=== PATIENT | female | born 1980 | race Caucasian/White ===

== ENCOUNTER 2018-08-06 15:39 | Emergency (ER) | payer OTHER ==
[2018-08-06 16:48] VITALS: BP 115/76
--- NOTE | 2018-08-06 17:11 | UC ---
Throat Pain/Nasal Emm[place] HPI - HPI Summary HPI Summary: 37-year-old woman coming in with a chief complaint of runny nose sore throat cough chest congestion and wheezing. This all started yesterday. She's had some chills. She has some pain in the chest with coughing. She has no history of asthma. She does have body aches but primarily in the chest with coughing. She has taken some [id number] medications that to help some. - History of Current Complaint Chief Complaint: UCRespiratory Stated Complaint: COUGH Time Seen by Provider: 08/06/18 17:00 Hx Last Menstrual Period: [id number] Pain Intensity: 5 - Allergies/Home Medications Allergies/Adverse Reactions: Allergies Allergy/AdvReac Type Severity Reaction Status Date / Time Penicillins Allergy Hives Verified 08/06/18 16:49 welbutrin Allergy Severe Hives Uncoded 08/06/18 16:49 adhesives Allergy Mild Rash Uncoded 08/06/18 16:49 Home Medications: Home Medications Ibuprofen TAB* [Motrin TAB* 800 MG] 800 mg PO Q6H PRN 08/06/18 [History Confirmed 08/06/18] PMH/Surg Hx/FS Hx/Imm Hx Previously Healthy: Yes - Surgical History Surgical History: Yes Surgery Procedure, Year, and Place: breast augmentation - Family History Known Family History: Positive: Hypertension, Diabetes - Social History Alcohol Use: Weekly Substance Use Type: Marijuana Substance Use Comment - Amount & Last Used: veryy occassional Smoking Status (MU): Never Smoked Tobacco - Immunization History Most Recent Tetanus Shot: unknown, will offer post Review of Systems Constitutional: Chills Skin: Negative Eyes: Negative ENT: Sore Throat, Nasal Discharge Respiratory: Cough, Other - wheezing Cardiovascular: Other - see hpi Gastrointestinal: Negative Motor: Negative Neurovascular: Negative Musculoskeletal: Negative Neurological: Negative Psychological: Negative Is Patient Immunocompromised?: No All Other Systems Reviewed And Are Negative: Yes Physical Exam Triage Information Reviewed: Yes Appearance: No Pain Distress, Well-Nourished, Ill-Appearing - mild Vital Signs: Initial Vital Signs Temp 98.0 F 08/06/18 16:42 Pulse 78 08/06/18 16:42 Resp 16 08/06/18 16:42 BP 115/76 08/06/18 16:42 Pulse Ox 99 08/06/18 16:42 Eye Exam: Normal Eyes: Positive: Conjunctiva Clear ENT: Positive: Pharyngeal erythema, Nasal drainage, TMs normal Neck exam: Normal Neck: Positive: Supple Respiratory: Positive: No respiratory distress, Wheezing Cardiovascular: Positive: RRR Musculoskeletal Exam: Normal Musculoskeletal: Positive: Strength Intact, ROM Intact Neurological Exam: Normal Neurological: Positive: Alert, Muscle Tone Normal Psychological Exam: Normal Psychological: Positive: Age Appropriate Behavior Skin Exam: Normal Throat Pain/Nasal Course/Dx - Course Course Of Treatment: DISCUSSED VIRAL VERSES BACTERIAL INFECTION AND THE ROLE OF ANTIBIOTICS. THE PATIENT WISHES TO BE ON ANTIBIOTICS AT THIS TIME. - Differential Dx/Diagnosis Provider Diagnoses: BRONCHITIS WITH BRONCHOSPASM Discharge - Sign-Out/Discharge Documenting (check all that apply): Patient Departure All imaging exams completed and their final reports reviewed: No Studies - Discharge Plan Condition: Stable Disposition: HOME Prescriptions: Albuterol HFA INHALER* [Ventolin HFA Inhaler*] 2 puff INH Q4H PRN #1 mdi PRN Reason: Wheezing Azithromyxin HEIDY (NF) [Z-Heidy (Zithromax) 250 mg tabs #6] 2 tab PO .TODAY, THEN 1 DAILY #6 tab Patient Education Materials: Acute Bronchitis (ED), Bronchospasm (ED) Forms: *Work Release Referrals: Samantha Matute MD [Primary Care Provider] - Additional Instructions: FOLLOW UP WITH YOUR DOCTOR. GET RECHECKED FOR ANY WORSENING OF YOUR CONDITION OR QUESTIONS OR CONCERNS. - Billing Disposition and Condition Condition: STABLE Disposition: Home
== END 2018-08-06 17:55 | disposition home or self-care (01) ==
LOC: UCEAST 15:39
DX: J40 Bronchitis, not specified as acute or chronic (principal); J98.01 Acute bronchospasm; Z88.8 Allergy status to other drugs, medicaments and biological substances; Z88.0 Allergy status to penicillin; Z91.048 Other nonmedicinal substance allergy status
CPT/HCPCS: 99212; G0463

== ENCOUNTER 2018-10-19 11:07 | Emergency (ER) | payer OTHER ==
[2018-10-19 11:31] VITALS: BP 128/78
--- NOTE | 2018-10-19 11:49 | UC ---
Complaint Female HPI - HPI Summary HPI Summary: 6 days of bladder pain with dysuria, urgency and frequency, which has not responded to increased water intake and cranberry juice. - History Of Current Complaint Chief Complaint: UCGU Stated Complaint: URINARY ISSUE Time Seen by Provider: 10/19/18 11:39 Hx Obtained From: Patient Hx Last Menstrual Period: 10/19/18 Onset/Duration: Gradual Onset, Lasting Days - 5 Timing: Intermittent, Lasting Hours Severity Initially: Mild Severity Currently: Moderate Pain Intensity: 3 Character: Burning Aggravating Factor(s): Urination Alleviating Factor(s): Nothing Associated Signs And Symptoms: Positive: Negative - Allergies/Home Medications Allergies/Adverse Reactions: Allergies Allergy/AdvReac Type Severity Reaction Status Date / Time Penicillins Allergy Hives Verified 10/19/18 11:31 welbutrin Allergy Severe Hives Uncoded 10/19/18 11:31 adhesives Allergy Mild Rash Uncoded 10/19/18 11:31 PMH/Surg Hx/FS Hx/Imm Hx Previously Healthy: Yes - Surgical History Surgical History: Yes Surgery Procedure, Year, and Place: breast augmentation. eye cyst removal - Family History Known Family History: Positive: Hypertension, Diabetes - Social History Occupation: Employed Full-time Lives: With Family Alcohol Use: Occasionally Substance Use Type: None Substance Use Comment - Amount & Last Used: hx mj use Smoking Status (MU): Never Smoked Tobacco - Immunization History Most Recent Tetanus Shot: unknown, Review of Systems All Other Systems Reviewed And Are Negative: Yes Constitutional: Positive: Negative Skin: Positive: Negative Eyes: Positive: Negative ENT: Positive: Negative Respiratory: Positive: Negative Cardiovascular: Positive: Negative Gastrointestinal: Positive: Negative Genitourinary: Positive: Dysuria, Frequency, Urgency. Negative: Vaginal/Penile Burning, Vaginal/Penile Itching, Vaginal/Penile Discharge Motor: Positive: Negative Neurovascular: Positive: Negative Musculoskeletal: Positive: Negative Neurological: Positive: Negative Psychological: Positive: Negative Is Patient Immunocompromised?: No Physical Exam Triage Information Reviewed: Yes Appearance: Well-Appearing, No Pain Distress, Obese Vital Signs: Initial Vital Signs Temp 97.2 F 10/19/18 11:26 Pulse 96 10/19/18 11:26 Resp 18 10/19/18 11:26 BP 128/78 10/19/18 11:26 Pulse Ox 98 10/19/18 11:26 ENT: Positive: Normal ENT inspection Neck: Positive: Supple, Nontender, No Lymphadenopathy Respiratory: Positive: Lungs clear, Normal breath sounds Cardiovascular: Positive: RRR, No Murmur Abdomen Description: Positive: Nontender, Soft. Negative: CVA Tenderness (R), CVA Tenderness (L) Musculoskeletal Exam: Normal Neurological Exam: Normal Psychological Exam: Normal Skin Exam: Normal Diagnostics - Laboratory Diagnostic Studies Completed/Ordered: UA shows many leuks and nitrate positive. Complaint Female Dx - Course Course Of Treatment: bactrim for UTI, maintain high intake of fluid - Differential Dx/Diagnosis Differential Diagnosis/HQI/PQRI: Ureteral Stone, Urinary Tract Infection Provider Diagnosis: UTI (urinary tract infection) Discharge - Sign-Out/Discharge Documenting (check all that apply): Patient Departure All imaging exams completed and their final reports reviewed: No Studies - Discharge Plan Condition: Stable Disposition: HOME Prescriptions: Sulfamethox/Trimethoprim DS* [Bactrim DS 800/160 TAB*] 1 tab PO BID #6 tab Patient Education Materials: Urinary Tract Infection in Women (ED) Referrals: Samantha Matute MD [Primary Care Provider] - Additional Instructions: Continue high intake of water. Take the full course of bactrim. Urine culture will be done, and if there is resistance to this antibiotic you will be notified. - Billing Disposition and Condition Condition: STABLE Disposition: Home
--- NOTE | 2018-10-20 16:01 | UC ---
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 Take the full course of bactrim. Urine culture will be done, and if there is resistance to this antibiotic you will be notified. - Billing Disposition and Condition Condition: STABLE Disposition: Home
== END 2018-10-19 12:07 | disposition home or self-care (01) ==
LOC: UCEAST 11:07
DX: N39.0 Urinary tract infection, site not specified (principal); Z88.0 Allergy status to penicillin; Z88.8 Allergy status to other drugs, medicaments and biological substances; Z91.048 Other nonmedicinal substance allergy status
CPT/HCPCS: 81003; 87086; 87088; 99212; G0463

== ENCOUNTER 2019-01-16 17:04 | Emergency (ER) | payer OTHER ==
[2019-01-16] MEDS ORDERED: Ibuprofen TAB* 400 MG PO ONE (18:16)
--- NOTE | 2019-01-16 18:21 | UC ---
HPI Febrile Illness - HPI Summary HPI Summary: 38-year-old female who is otherwise healthy presents with rapid onset of cough, congestion, runny nose and sore throat that began yesterday afternoon. She also had fever up to 101. She denies any shortness of breath nausea vomiting or diarrhea. She has no urinary symptoms. She reports her daughter recently had strep. No known influenza exposures. She is nonsmoker. - History of Current Complaint Time Seen by Provider: 01/16/19 18:10 Hx Obtained From: Patient Hx Last Menstrual Period: 10/19/18 - Allergy/Home Medications Allergies/Adverse Reactions: Allergies Allergy/AdvReac Type Severity Reaction Status Date / Time Penicillins Allergy Hives Verified 01/16/19 18:21 welbutrin Allergy Severe Hives Uncoded 01/16/19 18:21 adhesives Allergy Mild Rash Uncoded 01/16/19 18:21 Home Medications: Home Medications ALPRAZolam TAB* [Xanax TAB*] 0.25 mg PO Q6H PRN 01/16/19 [History Confirmed 01/31] Ibuprofen [Motrin Ib] 800 mg PO Q8HR PRN 01/16/19 [History Confirmed 01/16/19] PMH/Surg Hx/FS Hx/Imm Hx Previously Healthy: Yes - Surgical History Surgical History: Yes Surgery Procedure, Year, and Place: breast augmentation. eye cyst removal - Family History Known Family History: Positive: Hypertension, Diabetes, Other - The daughter recently diagnosed with strep - Social History Occupation: Employed Full-time Alcohol Use: Occasionally Substance Use Type: None Substance Use Comment - Amount & Last Used: hx mj use Smoking Status (MU): Never Smoked Tobacco - Immunization History Most Recent Tetanus Shot: unknown, Review of Systems All Other Systems Reviewed And Are Negative: Yes Constitutional: Positive: Fever, Chills, Fatigue Eyes: Positive: Negative ENT: Positive: Sore Throat, Nasal Discharge, Sinus Congestion Respiratory: Positive: Cough. Negative: Shortness Of Breath Cardiovascular: Positive: Negative Gastrointestinal: Negative: Abdominal Pain, Vomiting, Diarrhea Physical Exam Triage Information Reviewed: Yes Appearance: Well-Appearing, No Pain Distress Vital Signs Reviewed: Yes Eyes: Positive: Conjunctiva Clear ENT: Positive: Pharyngeal erythema, Nasal congestion, Nasal drainage, TMs normal , Tonsillar exudate. 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 Zithromax. Neg flu. Tx abx. Lab Results 01/16/19 01/16/19 Range/Units 18:18 18:26 Influenza A (Rapid) Negative (Negative) Influenza B (Rapid) Negative (Negative) Group A Strep Rapid Positive A (Negative) - Febrile Illness Differential Diagnoses: Other: - flu, strep, URI - Diagnoses Provider Diagnosis: Streptococcal tonsillitis Discharge - Sign-Out/Discharge Documenting (check all that apply): Patient Departure All imaging exams completed and their final reports reviewed: No Studies - Discharge Plan Condition: Improved Disposition: HOME Prescriptions: Azithromycin TAB* [Zithromax TAB (Z-HEIDY) 250 mg #6 tabs] 2 tab PO .TODAY, THEN 1 DAILY #1 heidy Dexamethasone TAB* [Decadron TAB*] 8 mg PO DAILY #8 tab Patient Education Materials: Strep Throat (ED) Referrals: Samantha Matute MD [Primary Care Provider] - Additional Instructions: Drink plenty of fluids. Tylenol, ibuprofen as needed for discomfort. Some steroids were given for tonsil discomfort. Follow up with her primary care doctor. Return if worse, new symptoms or other concerns. - Billing Disposition and Condition Condition: IMPROVED Disposition: Home
[2019-01-16 18:27] VITALS: BP 130/79
[2019-01-16 18:38] LABS: Influenza A Molecular NEGATIVE (Negative); Influenza B Molecular NEGATIVE (Negative)
== END 2019-01-16 18:49 | disposition home or self-care (01) ==
LOC: UCEAST 17:04
DX: J03.00 Acute streptococcal tonsillitis, unspecified (principal); Z20.828 Contact with and (suspected) exposure to other viral communicable diseases; Z88.0 Allergy status to penicillin
CPT/HCPCS: 87651; 99212; G0463